=== PATIENT | female | born 1990 | race Caucasian/White ===

== ENCOUNTER 2022-12-24 19:50 | Emergency (ER) | payer BC ==
[2022-12-24 20:14] VITALS: RESP 18; TEMP 98.2; O2SAT 99
--- NOTE | 2022-12-24 20:42 | ERPHSYRPT ---
- History of Present Illness Time Seen by Provider: 12/24/22 20:36 Source: patient Exam Limitations: no limitations Patient Subjective Stated Complaint: pt states she was going down cinder block steps and missed a step and rolled her ankle. Triage Nursing Assessment: pt alert and oriented, answers questions approp. pt back to room per wheelchair and transfers to stretcher with assist of 1. nwb on lt lower ext. respirations nonlabored. skin warm and dry. swelling noted to outer aspect of lt ankle. pt reports tenderness to lt ankle and lt foot. pedal pulse and cap refill wnl Physician History: Patient is a 32-year-old female presents to our ED for evaluation of pain to the lateral aspect of the left ankle. Patient states she was descending stairs when she inverted her ankle. Pain described as an ache that is localized. No radiation. Pain worse with weightbearing. Pain improved with rest. No other injuries reported. No BHT or LOC. No neck pain. Cervical spine cleared clinically. Patient voices no other complaints or concerns at this time. Portions of this note were created with voice recognition technology. There may be grammatical, spelling, punctuation or sound alike errors Method of Injury: twisted Occurred: just prior to arrival Quality: constant Severity of Pain-Max: moderate Severity of Pain-Current: mild Lower Extremities Pain: ankle: left Modifying Factors: Improves With: movement (Weightbearing) Associated Symptoms: none Allergies/Adverse Reactions: No Known Drug Allergies Allergy (Verified 12/24/22 19:56) Hx Tetanus, Diphtheria Vaccination/Date Given: Yes Hx Influenza Vaccination/Date Given: No Hx Pneumococcal Vaccination/Date Given: No Immunizations Up to Date: Yes Travel Risk - International Travel Have you traveled outside of the country in past 3 weeks: No - Coronavirus Screening Are you exhibiting any of the following symptoms?: No Close contact with a COVID-19 positive Pt in past 14-21 Days: No - Vaccine Status Have you recieved a Covid-19 vaccination: No - Review of Systems Constitutional: No Symptoms, No Fever, No Chills Eyes: No Symptoms Ears, Nose, & Throat: No Symptoms Respiratory: No Symptoms, No Cough, No Dyspnea Cardiac: No Symptoms, No Chest Pain, No Edema, No Syncope Abdominal/Gastrointestinal: No Symptoms, No Abdominal Pain, No Nausea, No Vomiting, No Diarrhea Genitourinary Symptoms: No Symptoms, No Dysuria Musculoskeletal: No Symptoms, No Back Pain, No Neck Pain Skin: No Symptoms, No Rash Neurological: No Symptoms, No Dizziness, No Focal Weakness, No Sensory Changes Psychological: No Symptoms Endocrine: No Symptoms Hematologic/Lymphatic: No Symptoms Immunological/Allergic: No Symptoms All Other Systems: Reviewed and Negative - Past Medical History Pertinent Past Medical History: No - Past Surgical History Past Surgical History: Yes Other Surgical History: tubes in ears, eye surgery for lazy eye - Social History Smoking Status: Never smoker Exposure to second hand smoke: No Drug Use: none Patient Lives Alone: No - Female History Hx Last Menstrual Period: 2 weeks Hx Now: No - Nursing Vital Signs Nursing Vital Signs: Initial Vital Signs Temperature 98.2 F 12/24/22 19:56 Pulse Rate 93 H 12/24/22 19:56 Respiratory Rate 18 12/24/22 19:56 Blood Pressure 151/97 12/24/22 19:56 O2 Sat by Pulse Oximetry 99 12/24/22 19:56 Pain Scale Pain Intensity 5 - Physical Exam General Appearance: no apparent distress, alert Cardiovascular/Respiratory Exam: normal breath sounds, regular rate/rhythm, no respiratory distress Back Exam: normal range of motion, No vertebral tenderness Hips Exam: bilateral: non-tender, normal inspection, normal range of motion, no evidence of injury Legs Exam: bilateral leg: non-tender, normal inspection, normal range of motion, no evidence of injury Knees Exam: bilateral knee: non-tender, normal inspection, normal range of motion, no evidence of injury Ankle Exam: right ankle: non-tender, normal inspection, normal range of motion, no evidence of injury, left ankle: swelling, other (Some swelling and tenderness to the lateral aspect of the left ankle. Overlying soft tissue intact. No signs of trauma. Extremities neurovascular intact distally. Compartments are soft. Cap refill less than 2 seconds. No open or draining lesions.) Foot Exam: bilateral foot: non-tender, normal inspection, normal range of motion, no evidence of injury Neuro/Tendon Exam: normal sensation, normal motor functions Mental Status Exam: alert, oriented x 3, cooperative Skin Exam: normal color, warm, dry SpO2 Interpretation: normal SpO2: 99 O2 Delivery: Room Air - Course Nursing assessment & vital signs reviewed: Yes - Radiology Exams Foot X-ray Interpretation: Reviewed by me (No fracture or dislocation. Intact soft tissue) Ankle X-ray Interpretation: Reviewed by me (No fracture or dislocation. Soft tissue swelling over the lateral malleolus) Ordered Tests: Active Orders 24 hr Category Date Time Status ANKLE (3 VIEWS) Stat Exams 12/24/22 20:15 Taken FOOT (MINIMUM 3 VIEWS) Stat Exams 12/24/22 20:15 Taken - Progress Progress: improved Progress Note: Patient is a 32-year-old female presents to our ED for evaluation of pain to her left ankle. Patient was descending stairs when she inverted her left ankle. Injury occurred just prior to arrival. Patient has pain and swelling to the lateral aspect of the left ankle just superficial to the ATFL ligament. The involved extremity is neurovascular tact distally. Compartments are soft. Cap refill less than 2 seconds. X-ray of both ankle and foot were completed. No fracture or dislocation observed. Soft tissue swelling observed. Patient denied the possibility of . Patient agreed to IM Toradol. A prescription for Toradol forwarded to patient's pharmacy. Patient received a referral to the orthopedic clinic. Patient received bilateral axillary crutches and an Scott wrap. Patient agrees to follow-up in the orthopedic clinic tomorrow as planned. Patient voices no other complaints or concerns at this time. Portions of this note were created with voice recognition technology. There may be grammatical, spelling, punctuation or sound alike errors Complexity of problem addressed is low acute uncomplicated Complex of data reviewed and analyzed is moderate. Dr. Schultz independently revi ewed x-ray of the involved extremity. X-ray was reviewed and analyzed. Clinical correlation made between findings and history and physical examination. Point tenderness observed on the lateral aspect of the left ankle at the ATFL ligament site. No fracture dislocations observed. Risk of complication and or risk of morbidity/mortality of patient management is moderate. Patient received IM Toradol. A prescription for the same was forwarded to patient's pharmacy. Patient received an Scott wrap and bilateral axillary crutches. A referral to the orthopedic clinic was provided as well. Vital stable. Diagnosis is ankle sprain. Time spent to discharge patient approximately 15 minutes. Plan of care established for shared decision making. No social determinants of health present to impede follow-up. Patient has no primary care doctor on record. Contact information of Dr. Sharpe provided to patient Portions of this note were created with voice recognition technology. There may be grammatical, spelling, punctuation or sound alike errors 12/24/22 20:49 12/24/22 20:55 Counseled pt/family regarding: diagnosis, need for follow-up, rad results - Departure Departure Disposition: Home Clinical Impression: Ankle sprain Condition: Stable Critical Care Time: No Referrals: DOCTOR,NO FAMILY [Primary Care Provider] - Follow up/PCP as directed CAYETANO SHARPE MD [ACTIVE STAFF] - Follow up/PCP as directed Additional Instructions: Discharge/Care Plan FARIBA GALEANO was seen on 12/24/22 in the Emergency Room. The patient was counseled regarding Diagnosis,Lab results, Imaging studies, need for follow up and when to return to the Emergency Room. Prescriptions given: Discharge Note I have spoken with the patient and/or caregivers. I have explained the patient's condition, diagnosis and treatment plan based on the information available to me at this time. I have answered the patient's and/or caregiver's questions and addressed any concerns. The patient and/or caregivers have as good understanding of the patient's diagnosis, condition and treatment plan as can be expected at this point. The vital signs have been stable. The patient's condition is stable and appropriate for discharge from the emergency department. The patient will pursue further outpatient evaluation with the primary care physician or other designated or consulting physician as outlined in the discharge instructions. The patient and/or caregivers are agreeable to this plan of care and follow-up instructions have been explained in detail. The patient and/or caregivers have received these instruction. The patient/and or caregivers are aware that any significant change in condition or worsening of symptoms should prompt an immediate return to this or the closest emergency department or call 911. Prescriptions: Ketorolac Trometh 10 mg Tab [TORAdol 10 MG TABLET] 10 mg PO TID 5 Days #15 tablet
[2022-12-24] MEDS ORDERED: TORAdol 30 mg Injection IM ONE (20:46)
[2022-12-24] MEDS ORDERED: TORAdol 30 mg Injection ONE (20:52)
[2022-12-24 21:08] VITALS: BP 129/78; PULSE 78
--- NOTE | 2022-12-25 08:38 | XRAY ---
Indication: Pain following fall. Comparison: None 3 nonweightbearing views left foot demonstrates incidental posterior talus accessory ossicle. No other bony, articular, or soft tissue abnormalities.
--- NOTE | 2022-12-25 08:38 | XRAY ---
Indication: Pain following fall. Comparison: None 3 view left ankle demonstrates anterolateral soft tissue swelling and incidental posterior talus accessory ossicle. No other bony, articular, or soft tissue abnormalities.
== END 2022-12-24 21:07 | disposition home or self-care (01) ==
LOC: ED 19:50
DX: S93.402A Sprain of unspecified ligament of left ankle, initial encounter (principal); X50.0XXA Overexertion from strenuous movement or load, initial encounter; Z28.310 Unvaccinated for COVID-19
CPT/HCPCS: 73610; 73630; 96372; 99283; J1885